=== PATIENT | female | born 2005 | race African-American/Black ===

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

== ENCOUNTER 2024-01-09 02:20 | Emergency (ER) | payer OTHER, BC, MEDICAID, SELFPAY ==
--- NOTE | ~2024-01-09 | XR_ITS ---
Right elbow Technique: AP, oblique, and lateral views were obtained. Clinical History: Pain Findings: No acute fracture or dislocation is seen. Osseous alignment is anatomic. Joint spaces are p reserved. There is no displacement of the fat pads, and soft tissues are unremarkable. Linear radiode nsity at the upper arm probably represents an implantable control device. Impression: Unremarkable radiographs. Reviewed, dictated and finalized at location . TEGIC ADVISOR Impression: Unremarkable radiographs.
[2024-01-09 02:26] VITALS: BP 133/63; PULSE 70; RESP 15; TEMP 36.2; O2SAT 99
--- NOTE | 2024-01-09 02:58 | ED.GENADULT ---
HPI - General Adult General Chief complaint: Extremity Injury, Upper Stated complaint: elbow pain Time Seen by Provider: 01/09/24 02:48 History of Present Illness HPI narrative: Patient is a 89-year-old female who presents to the emergency department this evening due to an elbow injury that occurred at work. Patient states that she was pushing a pellet kika when she heard a pop in her right elbow. Patient states that she continue to work and throughout the day her right elbow became sore. She decided to come to the emergency department for further evaluation. Patient denies any other injuries, any falls and currently denies any right upper extremity weakness, numbness no tingling. There are no other modifying, alleviating, or precipitating factors at this time. Related Data Home Medications Medication Instructions Recorded Confirmed etonogestrel 68 mg subdermal 1 implant subdermal ONCE 07/01/23 09/04/23 implant (Nexplanon) Allergies Allergy/AdvReac Type Severity Reaction Status Date / Time No Known Allergies Allergy Mild Verified 01/09/24 02:21 Review of Systems Review of Systems: All systems are reviewed and are negative unless stated otherwise in the HPI. [facility] Past Medical History Medical History Migraines Surgical History Surgical History No pertinent past surgical history Family History Family History Mother Diabetes mellitus Social History Social History Smoking status: Never smoker Substance use: never Living arrangements: alone Additional occupation/education comments: [employer] Gender identity (if verbalized by the patient): Female Exam Narrative: General: Alert, awake, afebrile, in no acute distress. HEENT: PERRL, no rhinorrhea, no post nasal drip, oropharynx clear. Neck: Trachea midline, no JVD, no lymphadenopathy. Cardiovascular: Regular rate and rhythm, no murmurs, rubs or gallops, no peripheral edema. Respiratory: Clear to auscultation bilaterally, no tachypnea, no wheezing, no rhonchi, no rubs, no respiratory distress. Abdomen: Soft, nontender, nondistended, no rebound, no guarding, no peritoneal signs. Musculoskeletal: Intact range of motion at the right elbow joint, intact radial and ulnar pulses at the right upper extremity, intact sensation over all nerve distributions including median, ulnar and radial nerves, patient is neurovascularly intact, no tenderness to palpation over the elbow joint. Skin: No rashes or petechia, no signs of infection. Psychiatric: Alert and oriented, normal behavior and judgment for situation. Neurological: Alert and oriented to person, place, and time. Follows all commands. No focal deficits, speech is clear and fluent. Course Vital Signs Vital signs: Vital Signs Temperature 97.2 F L 01/09/24 02:26 Pulse Rate 70 01/09/24 02:26 Respiratory Rate 15 01/09/24 02:26 Blood Pressure 133/63 01/09/24 02:26 Pulse Oximetry 99 01/09/24 02:26 Oxygen Delivery Room Air 01/09/24 02:26 Temperature 97.2 F L 01/09/24 02:26 Pulse Rate 70 01/09/24 02:26 Respiratory Rate 15 01/09/24 02:26 Blood Pressure 133/63 01/09/24 02:26 Pulse Oximetry 99 01/09/24 02:26 Oxygen Delivery Room Air 01/09/24 02:26 Medical Decision Making MDM Narrative Medical decision making narrative: The patient was evaluated by myself in the emergency department. History is obtained from patient who is an independent historian and physical exam was performed. External medical records were reviewed at this time. Imaging studies obtained included right elbow x-ray which was independently interpreted by me revealing no acute process, which is pending final radiology interpretation. Patient was placed in a right arm sling
[2024-01-09 03:43] VITALS: BP 132/78; PULSE 94; RESP 16; O2SAT 99
== END 2024-01-09 03:44 | disposition home or self-care (01) ==
PROVIDERS: Emergency Provider Emergency Medicine
DX: S46.811A Strain of other muscles, fascia and tendons at shoulder and upper arm level, right arm, initial encounter (principal); X50.0XXA Overexertion from strenuous movement or load, initial encounter
CPT/HCPCS: 73080; 99283

== ENCOUNTER 2024-01-26 15:15 | Emergency (ER) | payer BC, OTHER, MEDICAID, SELFPAY ==
[2024-01-26 15:32] VITALS: BP 131/81; PULSE 102; RESP 18; TEMP 36.6; O2SAT 100
--- NOTE | 2024-01-26 15:51 | ED.EXTPRO ---
HPI - Extremity Problem General Chief complaint: Extremity Problem,Nontraumatic Stated complaint: Right Elbow Time Seen by Provider: 01/26/24 15:56 Source: patient and RN notes reviewed Mode of arrival: ambulatory Limitations: no limitations History of Present Illness HPI Narrative: 18-year-old female presents with concern for returning to work after an elbow injury. She reports she sprained her elbow and has been off work, she now has no pain in his right a return to work. She reports for time she use Tylenol, sling. She denies any decreased strength, sensation, range of motion, pain. My swelling, redness, warmth, bruising Complaint: other (Return to work) Related Data Home Medications Medication Instructions Recorded Confirmed etonogestrel 68 mg subdermal 1 implant subdermal ONCE 07/01/23 01/26/24 implant (Nexplanon) Allergies Allergy/AdvReac Type Severity Reaction Status Date / Time No Known Allergies Allergy Mild Verified 01/26/24 15:17 Review of Systems Review of Systems: CONSTITUTIONAL: Denies malaise, chills, sweats, or fever. SKIN: Denies rash or itching, open skin, laceration, abrasion, redness, warmth, swelling. MUSCULOSKELETAL: Denies elbow pain NEUROLOGIC: Denies numbness, weakness All systems reviewed & are unremarkable except as noted in HPI and below PMFSH Past Medical History Medical History Migraines Surgical History Surgical History No pertinent past surgical history Family History Family History Mother Diabetes mellitus Social History Social History Smoking status: Never smoker Substance use: never Living arrangements: alone Additional occupation/education comments: [employer] Gender identity (if verbalized by the patient): Female Comments At time of signature, agree with nursing past medical, surgical, social and family history. There is no relevant family history pertinent to the presenting complaint Exam Narrative: GENERAL: Well-appearing, well-nourished, and in no acute distress. HEAD: Normocephalic, atraumatic. EYES: PERRLA, conjunctivae clear NECK: Supple. CHEST: Speaks in full sentences. No respiratory distress. HEART: Regular rate and rhythm. Normal and equal peripheral pulses. EXTREMITIES: Right elbow has normal strength and sensation, normal range of motion. No edema or ecchymosis. 5/5 strength with elbow flexion and extension. Normal sensation with sensitivity to light touch and pain. No point tenderness. No open wounds, no skin tenting, no devitalized tissue or atrophy, no trophic changes, no obvious deformity, alignment normal, nearby joints and structures intact. Distal pulses palpable and equal bilaterally, skin warm, dry, pink. Capillary refill less than 3 seconds. SKIN: Warm, dry, no rash. NEURO: Alert and oriented x3. PSYCH: Normal mood and affect Course Course Emergency Course: Patient is aware of diagnosis, understands and agrees to treatment plan. Anticipatory guidance given. Patient agrees to follow-up as directed and is aware of reasons to seek care at the emergency department. Portions of this record may have been created with voice recognition software Level of Care: Express Care Visit Vital Signs Vital signs: Vital Signs Temperature 98 F 01/26/24 15:32 Pulse Rate 102 H 01/26/24 15:32 Respiratory Rate 18 01/26/24 15:32 Blood Pressure 131/81 01/26/24 15:32 Pulse Oximetry 100 01/26/24 15:32 Oxygen Delivery Room Air 01/26/24 15:32 Temperature 98 F 01/26/24 15:32 Pulse Rate 102 H 01/26/24 15:32 Respiratory Rate 18 01/26/24 15:32 Blood Pressure 131/81 01/26/24 15:32 Pulse Oximetry 100 01/26/24 15:32 Oxygen Delivery Room Air 01/26/24 15:32 Reviewed. MDM - Ex
== END 2024-01-26 16:05 | disposition home or self-care (01) ==
PROVIDERS: Emergency Provider Nurse Practitioner
DX: Z02.79 Encounter for issue of other medical certificate (principal)
CPT/HCPCS: 99211; G0463

== ENCOUNTER 2024-04-22 10:54 | Emergency (ER) | payer BC, SELFPAY ==
--- NOTE | ~2024-04-22 | CT_ITS ---
CT brain wo con Ordering provider: Nubia Orellana III, DO History: 19 years Female with . headache . Comparison: None. Technique: CT of the head without contrast. Radiation reduction technique utilized. DLP is 605.33 mG y. FINDINGS: BRAIN PARENCHYMA AND CSF SPACES: No midline shift, mass effect or hemorrhage. The brain parenchyma a nd CSF spaces are otherwise normal. VISUALIZED PARANASAL SINUSES: Well aerated. MASTOIDS: Well aerated. BONES: The bones appear intact. SOFT TISSUES: Visualized nasopharynx is normal. Superficial soft tissues are normal. IMPRESSION: No acute intracranial findings. Reviewed, dictated and finalized at location A.
[2024-04-22 10:58] VITALS: BP 128/90; PULSE 83; RESP 16; TEMP 36.6; O2SAT 100
[2024-04-22] MEDS: SODIUM CHLORIDE 0.9% IV 1,000 ML 999 ML IV CONT (12:44)
[2024-04-22] MEDS: diphenhydrAMINE HCl INJ 50 MG/ML VIAL IV PUSH (12:45)
[2024-04-22] MEDS: methylPREDNISolone SOD SUCC 125 MG VIAL IV PUSH (12:48)
[2024-04-22] MEDS: KETOROLAC 15 MG/ML VIAL (*BKC) IV PUSH (12:50)
[2024-04-22] MEDS: PROCHLORPERAZINE EDISYLATE 10 MG/2 ML VIAL IV PUSH (12:51)
[2024-04-22 12:52] VITALS: BP 118/86; PULSE 70; RESP 18; O2SAT 100
--- NOTE | 2024-04-22 13:09 | ED.HA ---
HPI - Headache General Chief Complaint: Headache Stated Complaint: migraine Time Seen by Provider: 04/22/24 12:03 History of Present Illness HPI Narrative: Pt presents with a migraine for days. Pt has a history of migraines but they are occuring more frequently. Pt denies numbness or weakness. Pt has not had any recent imaging. Pt was on migraine meds but stopped them because they weren't working and now is between neurologists. Related Data Home Medications Medication Instructions Recorded Confirmed etonogestrel 68 mg subdermal 1 implant subdermal ONCE 07/01/23 01/26/24 implant (Nexplanon) Allergies Allergy/AdvReac Type Severity Reaction Status Date / Time No Known Allergies Allergy Mild Verified 04/22/24 11:07 Review of Systems Review of Systems: All systems reviewed & are unremarkable except as noted in HPI and below PMFSH Past Medical History Medical History Migraines Surgical History Surgical History No pertinent past surgical history Family History Family History Mother Diabetes mellitus Social History Social History Smoking status: Never smoker Substance use: never Living arrangements: alone Additional occupation/education comments: [employer] Gender identity (if verbalized by the patient): Female Exam Const: General: healthy appearing and no acute distress Nutritional Appearance: well nourished Orientation/consciousness: patient oriented x3 Limitations: no limitations HENMT: Head: normal to inspection Eyes: Conjunctivae: conjunctivae normal Pupils: Equal, round and reactive pupils present Neck: Neck: normal visual inspection, no lymphadenopathy and no meningeal signs Resp: Effort & Inspection: normal respiratory effort Auscultation: clear to auscultation bilaterally Cardio: Rate: regular rate Rhythm: regular rhythm GI: GI Palp: Yes Soft to palpation and No Tenderness to palpation present (GI) Auscultation: normal bowel sounds Skin: General skin exam: normal color Rashes: no rashes Neuro: General: patient oriented x3, moves all extremities, no meningeal signs, no focal motor deficits and CN's II-XI intact bilaterally Cranial nerves: Yes Nystagmus not present Speech: normal speech Gait exam (Neuro): Normal gait present Extrem: General: normal to inspection and no clubbing, cyanosis or edema Psych: Mental Status: mental status grossly normal Affect: normal affect Attitude: cooperative Course Vital Signs Vital signs: Vital Signs Temperature 97.8 F 04/22/24 10:58 Pulse Rate 83 04/22/24 10:58 Respiratory Rate 16 04/22/24 10:58 Blood Pressure 128/90 04/22/24 10:58 Pulse Oximetry 100 04/22/24 10:58 Oxygen Delivery Room Air 04/22/24 10:58 Temperature 97.8 F 04/22/24 10:58 Pulse Rate 70 04/22/24 12:52 Respiratory Rate 18 04/22/24 12:52 Blood Pressure 118/86 04/22/24 12:52 Pulse Oximetry 100 04/22/24 12:52 Oxygen Delivery Room Air 04/22/24 10:58 MDM - Headache MDM Narrative Medical decision making narrative: has chronic migraine hx so will treat with fluids and meds but will get CT brain to be safe. CT fine. Pt feels better ok to go home. Discharge Plan Discharge Clinical Impression: Migraines Patient Disposition: Home, Self-Care Condition: Improved Instructions: Antibiotic Form, Migraine Headache (ED) Prescriptions: No Action Nexplanon 68 mg Implant 1 implant SUBDERMAL ONCE Rx Instructions: as a single dose Follow-up/Referrals: Devaughn Herrera MD [Primary Care Provider] - Dot Leiva MD [Physician] -
== END 2024-04-22 13:30 | disposition home or self-care (01) ==
PROVIDERS: Emergency Provider Emergency Medicine; PCP Emergency Medicine
DX: G43.909 Migraine, unspecified, not intractable, without status migrainosus (principal)
CPT/HCPCS: 70450; 96361; 96374; 96375; 99284; J0780; J1200; J1885; J2919; J7030

== ENCOUNTER 2024-05-02 08:41 | Outpatient (CLI) | payer BC, SELFPAY ==
--- NOTE | ~2024-05-02 | MR_ITS ---
EXAMINATION: MR lumbar spine wo con DATE: 05/02/2024 10:23 INDICATION: Back pain TECHNIQUE: Magnetic resonance imaging (MRI) of the lumbar spine was performed without intravenous con trast. Sequences included sagittal T2-weighted FSE, sagittal T2-weighted FS FSE, sagittal T1-weighted FSE, and axial T2-weighted FSE. COMPARISON: None FINDINGS: Alignment is normal. Minimal likely physiologic anterior wedging at T11-L1. Normal marrow signal. Di sc heights are normal. The conus medullaris terminates at L2. There is normal signal in the caudal sp inal cord. Paravertebral soft tissues are unremarkable. The following disc levels are specifically di scussed: T12-L1: The disc does not extend beyond the endplate margin. There is no facet joint osteoarthritis. There is no neural foraminal stenosis. There is no central canal stenosis. L1-L2: The disc does not extend beyond the endplate margin. There is mild right facet joint osteoarth ritis. There is no neural foraminal stenosis. There is no central canal stenosis. L2-L3: There are small bilateral foraminal zone disc protrusions. There is mild right facet joint ost eoarthritis. There is minimal bilateral neural foraminal stenosis. There is no central canal stenosis . L3-L4: There are small bilateral foraminal zone disc protrusions. There is mild right facet joint ost eoarthritis. There is minimal bilateral neural foraminal stenosis. There is no central canal stenosis . L4-L5: There are small bilateral foraminal zone disc protrusions. There is mild left and mild to mode rate right facet joint osteoarthritis. There is mild bilateral neural foraminal stenosis. There is no central canal stenosis. L5-S1: Disc is minimally bulging. There is mild left and mild to moderate right facet joint osteoarth ritis. There is mild right and minimal left neural foraminal stenosis. There is no central canal sten osis. IMPRESSION: 1. 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 Reviewed, dictated and finalized at location A. IMPRESSION: 1. 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
== END 2024-05-02 08:42 | disposition home or self-care (01) ==
PROVIDERS: PCP Emergency Medicine
DX: M51.36 Other intervertebral disc degeneration, lumbar region (principal)
CPT/HCPCS: 72148